=== PATIENT | male | born 1960 | race Caucasian/White ===

== ENCOUNTER 2017-01-30 08:52 | Emergency (ER) | payer OTHER ==
[~2017-01-30 08:52] MED LIST: DESE1CRE TOP
[2017-01-30 08:55] VITALS: BP 164/91; PULSE 99; RESP 17; TEMP 97.9; O2SAT 99
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
== END 2017-01-30 09:50 | disposition home or self-care (01) ==
LOC: NEPD 08:52
DX: M54.2 Cervicalgia (principal); E11.9 Type 2 diabetes mellitus without complications; Z72.0 Tobacco use; V43.52XA Car driver injured in collision with other type car in traffic accident, initial encounter
CPT/HCPCS: 99282

== ENCOUNTER 2017-03-18 20:09 | Observation (INO) | payer SELFPAY ==
[~2017-03-18] VITALS: Ht 152.4 cm; Wt 115.0 kg
[2017-03-18 20:10] VITALS: BP 142/80; PULSE 99; RESP 16; TEMP 97.9; O2SAT 96
[2017-03-18] MEDS ORDERED: LISI-519 PO (22:19)
[2017-03-18] MEDS ORDERED: GLIP5TAB8 PO (22:19)
[2017-03-18] MEDS ORDERED: METF500T PO (22:19)
[2017-03-18] MEDS ORDERED: SODIUM CHLORIDE 0.9% FLUSH 10 ML FLUSH IV FLUSH PRN (22:30)
[2017-03-18 22:48] LABS: HEMATOCRIT 40.6 % (39.0-51.0); HEMOGLOBIN 13.7 GM/DL (13.0-17.0); MEAN CELL VOLUME 80.6 FL (80.0-100.0); MEAN CORPUSCULAR HEMOGLOBIN 27.3 PG (27.0-34.0); MEAN CORPUSCULAR HGB CONC 33.8 % (32.0-36.0); MEAN PLATELET VOLUME 7.9 FL (7.0-11.0); PLATELET COUNT 335 TH/MM3 (150-450); RED BLOOD COUNT 5.04 MIL/MM3 (4.50-5.90); RED CELL DISTRIBUTION WIDTH 14.4 % (11.6-17.2); WHITE BLOOD COUNT 13.8 TH/MM3 (4.0-11.0)
[2017-03-18 23:05] LABS: BILIRUBIN, URINE NEG (NEG); BLOOD, URINE NEG (NEG); GLUCOSE,URINE NEG (NEG); KETONE, URINE NEG (NEG); MUCUS URINE FEW /lpf (OCC); NITRITE,URINE NEG (NEG); SQUAMOUS EPITHELIAL CELL URINE 1 /hpf (0-5); URINE COLOR YELLOW (YELLW/STRAW); URINE LEUKOCYTE ESTERASE NEG (NEG)
[2017-03-18 23:09] LABS: ALBUMIN 3.5 GM/DL (3.4-5.0); ALT (GPT) 37 U/L (12-78); AST (GOT) 15 U/L (15-37); BICARBONATE 27.3 MEQ/L (21.0-32.0); BLOOD UREA NITROGEN 9 MG/DL (7-18); CALCIUM 9.4 MG/DL (8.5-10.1); CHLORIDE 104 MEQ/L (98-107); CREATININE 0.97 MG/DL (0.60-1.30); GLOMERULAR FILTRATION RATE 80 ML/MIN (>89); GLUCOSE,RANDOM 131 MG/DL (74-106); LIPASE 160 U/L (73-393); SODIUM (NA) 138 MEQ/L (136-145)
[2017-03-18 23:12] LABS: ALKALINE PHOSPHATASE 101 U/L (45-117); TOTAL BILIRUBIN ADULT 0.2 MG/DL (0.2-1.0); TOTAL PROTEIN 7.9 GM/DL (6.4-8.2)
--- NOTE | 2017-03-18 23:21 | PD ---
HPI Chief Complaint: Abdominal Pain Time Seen by Provider: 22:54 Travel History International Travel<30 days: No Contact w/Intl Traveler<30days: No Traveled to known affect area: No History of Present Illness HPI 56-year-old male patient presents to the ER today with 8 months history of left upper quadrant abdominal pains which she has seen multiple doctors 4, states that they were not able to tell him what is causing the pain, but he states that over last few months his pain has spread over to the right side and is in the upper abdomen, stated to be a 7 out of 10 currently. He states that now he is also having symptoms in his left chest and left upper back area radiating up to the left arm. He denies any shortness of breath, vomiting, or any other symptoms. He is not sure of any exacerbating or alleviating factors but he states that it feels like it hurts when touched. Modifying Factors: Hurts when touched Associated Signs & Symptoms: Upper abdominal pain, left-sided chest pains for several months Risk Factors: None PFSH Past Medical History Diabetes: Yes (TYPE II TAKES METFORMIN AND GLIPIZIDE) Patient Takes Glucophage: Yes Diminished Hearing: No Social History Alcohol Use: No (RARE) Tobacco Use: Yes (1/2PPD) Substance Use: No Allergies-Medications (Allergen,Severity, Reaction): Coded Allergies: No Known Allergies (Verified Adverse Reaction, Unknown, 01/30/17) Reported Meds & Prescriptions Reported Meds & Active Scripts Active Reported Lisinopril 5 Mg Tab 5 Mg PO DAILY Glipizide 5 Mg Tab 5 Mg PO DAILY Take 30 minutes before a meal Metformin (Metformin HCl) 500 Mg Tab 500 Mg PO BIDPC Review of Systems Except as stated in HPI: all other systems reviewed are Neg Physical Exam Narrative GENERAL: Well-developed middle age male patient currently in mild distress. Awake and oriented 3. SKIN: Focused skin assessment warm/dry. I do not see any rash. HEAD: Atraumatic. Normocephalic. EYES: Pupils equal and round. No scleral icterus. No injection or drainage. ENT: No nasal bleeding or discharge. Mucous membranes pink and moist. NECK: Trachea midline. No JVD. Supple. CARDIOVASCULAR: Regular rate and rhythm. No murmur appreciated. RESPIRATORY: No accessory muscle use. Clear to auscultation. Breath sounds equal bilaterally. GASTROINTESTINAL: Abdomen soft, mild tenderness to palpation in the upper abdomen without guarding or rebound, nondistended. Hepatic and splenic margins not palpable. MUSCULOSKELETAL: No obvious deformities. No clubbing. No cyanosis. No edema. NEUROLOGICAL: Awake and alert. No obvious cranial nerve deficits. Motor grossly within normal limits. Normal speech. PSYCHIATRIC: Appropriate mood and affect; insight and judgment normal. Data Data Last Documented VS Vital Signs Date Time Temp Pulse Resp B/P (MAP) Pulse Ox O2 Delivery O2 Flow Rate FiO2 03/18/17 22:14 18 03/18/17 20:10 97.9 99 142/80 (100) 96 Room Air Orders Orders Complete Blood Count With Diff (03/18/17 22:18) Comprehensive Metabolic Panel (03/18/17 22:18) Lipase (03/18/17 22:18) Urinalysis - C+S If Indicated (03/18/17 22:18) Iv Access Insert/Monitor (03/18/17 22:18) Ecg Monitoring (03/18/17 22:18) Oximetry (03/18/17 22:18) Sodium Chloride 0.9% Flush (Ns Flush) (03/18/17 22:30) Chest, Single Ap (03/18/17 22:54) Ct Abd/Pel W Iv Contrast(Rout) (03/18/17 22:54) Iohexol 350 Inj (Omnipaque 350 Inj) (03/18/17 23:53) Labs Laboratory Tests Test 03/18/17 22:20 03/18/17 22:35 White Blood Count 13.8 TH/MM3 Red Blood Count 5.04 MIL/MM3 Hemoglobin 13.7 GM/DL Hematocrit 40.6 % Mean Corpuscular Volume 80.6 FL Mean Corpuscular Hemoglobin 27.3 PG Mean Corpuscular Hemoglobin Concent 33.8 % Red Cell Distribution Width 14.4 % Platelet Count 335 TH/MM3 Mean Platelet Volume 7.9 FL CBC Comment AUTO DIFF Differential Total Cells Counted 100 Neutrophils % (Manual) 58 % Lymphocytes % 38 % Monocytes % 3 % Eosinophils % 1 % Neutrophils # (Manual) 8.0 TH/MM3 Differential Comment FINAL DIFF MANUAL Platelet Estimate NORMAL Platelet Morphology Comment NORMAL Red Cell Morphology Comment NORMAL Blood Urea Nitrogen 9 MG/DL Creatinine 0.97 MG/DL Random Glucose 131 MG/DL Total Protein 7.9 GM/DL Albumin 3.5 GM/DL Calcium Level 9.4 MG/DL Alkaline Phosphatase 101 U/L Aspartate Amino Transf (AST/SGOT) 15 U/L Alanine Aminotransferase (ALT/SGPT) 37 U/L Total Bilirubin 0.2 MG/DL Sodium Level 138 MEQ/L Potassium Level 3.9 MEQ/L Chloride Level 104 MEQ/L Carbon Dioxide Level 27.3 MEQ/L Anion Gap 7 MEQ/L Estimat Glomerular Filtration Rate 80 ML/MIN Lipase 160 U/L Urine Color YELLOW Urine Turbidity CLEAR Urine pH 6.0 Urine Specific [place] 1.015 Urine Protein NEG mg/dL Urine Glucose (UA) NEG mg/dL Urine Ketones NEG mg/dL Urine Occult Blood NEG Urine Nitrite NEG Urine Bilirubin NEG Urine Urobilinogen LESS THAN 2.0 MG/DL Urine Leukocyte Esterase NEG Urine RBC LESS THAN 1 /hpf Urine WBC 1 /hpf Urine Squamous Epithelial Cells 1 /hpf Urine Mucus FEW /lpf Microscopic Urinalysis Comment CULT NOT INDICATED MDM Medical Decision Making Medical Screen Exam Complete: Yes Emergency Medical Condition: Yes Medical Record Reviewed: Yes Interpretation(s) EKG shows NSR, no ST elevation or depression, and no arrhythmias. No significant T-wave inversions. Laboratory Tests Test 03/18/17 22:20 03/18/17 22:35 White Blood Count 13.8 TH/MM3 (4.0-11.0) Neutrophils # (Manual) 8.0 TH/MM3 (1.8-7.7) Random Glucose 131 MG/DL (74-106) Estimat Glomerular Filtration Rate 80 ML/MIN (>89) Urine Mucus FEW /lpf (OCC) Last 24 hours Impressions Chest X-Ray 03/18/172253 Signed Impressions: Service Date/Time: Saturday, March 18, 2017 23:07 - CONCLUSION: No acute disease. Abraham Suazo MD Abdomen/Pelvis CT 03/18/172253 Signed Impressions: Service Date/Time: Saturday, March 18, 2017 23:46 - CONCLUSION: 1. No acute findings within the abdomen and pelvis. Mild fatty liver. Abraham Suazo MD Differential Diagnosis Pancreatitis versus gastritis versus ACS versus cervical radiculopathy versus postherpetic pain Narrative Course Laboratory and CAT scan was unremarkable. Chest x-ray did not show any signs of acute pulmonary processes. EKG did not show any signs of ST changes. At this point, it is unclear whether chest pain and abdominal pain is related. I do not see any signs of acute intra-abdominal processes. The chest pain seems to have occurred later and my plan would be to admit him for further evaluation of chest pain. Diagnosis Primary Impression: Abdominal pain Additional Impression: Chest pain Admitting Information Admitting Physician Requests: Admit SoonZach fam MD Mar 18, 2017 23:21
--- NOTE | 2017-03-18 23:27 | RADRPT ---
EXAM DATE/TIME: 03/18/2017 23:07 [facility] COMPARISON: No previous studies available for comparison. INDICATIONS : Upper abdominal pain radiating into chest and left arm MEDICAL HISTORY : Diabetes mellitus type II. SURGICAL HISTORY : None. ENCOUNTER: Initial ACUITY: 1 day PAIN SCORE: 7/10 LOCATION: Bilateral chest FINDINGS: A single view of the chest demonstrates the lungs to be symmetrically aerated without evidence of mas s, infiltrate or effusion. The cardiomediastinal contours are unremarkable. Osseous structures are intact. CONCLUSION: No acute disease. Abraham Suazo MD on March 18, 2017 at 23:24 Board Certified Radiologist. This report was verified electronically.
[2017-03-18] MEDS ORDERED: IOHEXOL 350 MG/ML 10 ML VIAL (for RAD DIAG) IVCONTRAST ONE (23:53)
[2017-03-18 23:55] LABS: LYMPHOCYTES 38 % (9-44); MONOCYTES 3 % (0-8); POLYS (SEG NEUTROPHILS) 58 % (16-70)
--- NOTE | 2017-03-19 00:01 | RADRPT ---
EXAM DATE/TIME: 03/18/2017 23:46 [facility] COMPARISON: No previous studies available for comparison. INDICATIONS : Upper abdominal pain. IV CONTRAST: 79 cc Omnipaque 350 (iohexol) IV ORAL CONTRAST: No oral contrast ingested. RADIATION DOSE: 18.42 CTDIvol (mGy) MEDICAL HISTORY : Diabetes mellitus type 2. SURGICAL HISTORY : Right femur ENCOUNTER: Initial ACUITY: 1 yr PAIN SCALE: 5/10 LOCATION: abdomen TECHNIQUE: Volumetric scanning of the abdomen and pelvis was performed. Using automated exposure control and ad justment of the mA and/or kV according to patient size, radiation dose was kept as low as reasonably achievable to obtain optimal diagnostic quality images. DICOM format image data is available electro nically for review and comparison. FINDINGS: Lung bases demonstrate some dependent atelectasis. 5 mm nodule right lower lobe has negative Hounsfie ld units and may represent a hamartoma. Mild fatty liver. Spleen, adrenals, kidneys and pancreas unremarkable. No calcified gallstones or mary iary ductal dilatation. No free air or free fluid. No bowel obstruction. No acute bony abnormalities. Previous fixation right femur. CONCLUSION: 1. No acute findings within the abdomen and pelvis. Mild fatty liver. Abraham Suazo MD on March 18, 2017 at 23:53 Board Certified Radiologist. This report was verified electronically.
[2017-03-19] MEDS ORDERED: SODIUM CHLORIDE 0.9% FLUSH 10 ML FLUSH IV FLUSH PRN (01:00)
[2017-03-19 01:07] VITALS: O2SAT 97
[2017-03-19 02:47] LABS: TROPONIN I LESS THAN 0.02 NG/ML (0.02-0.05)
[2017-03-19 03:42] VITALS: BP 153/95; PULSE 80; RESP 20; TEMP 97.9; O2SAT 96
[2017-03-19 04:48] LABS: TROPONIN I LESS THAN 0.02 NG/ML (0.02-0.05)
--- NOTE | 2017-03-19 07:35 | HHI.HP ---
HPI Primary Care Physician No Primary Care Physician Chief Complaint Abdominal pain History of Present Illness 56-year-old male with history of type 2 diabetes presents to emergency room for further evaluation sensitivity to use abdominal.. Onset 8-12 months. Characterizes "area between muscles and skin extremely sensitive and painful." Endorses multiple physician assessed discomfort with CT scans however unable to determine diagnosis or treatment for discomfort. Came to ER as sensitivity and discomfort "moving to left side of chest and left posterior upper arm ( localized area.). Duration constant x1 week. Nothing makes pain better or worse. No exertional chest pain. No associated symptoms. Review of Systems General: No fatigue,weakness, fever, chills, recent illness, or change in appetite. Has been in his general state of health. HEENT: No PALACIOS, no vision changes, no nasal congestion or drainage, no dysphasia CV: No CP, pressure, palpitations, intermittent leg pain, dizziness. Same sensitivity of abdominal area now left side of chest, hurting to touch area. RESP: No SOB, cough, wheeze, or recent URI GI: No nausea, vomiting, bowel changes. Reports touching any area in abdominal highly sensitive leading to pain, wears an abdominal binder to reduce touching of area. : No dysuria, urgency, frequency EXT: No lower leg edema MS: No discomfort, change in ROM, injury, or trauma. NEURO: No change in memory, dizziness, difficulty with balance, LOC, motor/ sensory deficits PSYCH: No anxiety, depression SKIN: No rashes, no concerning lesions Past Family Social History Allergies: Coded Allergies: No Known Allergies (Verified Allergy, Unknown, 03/19/17) Past Medical History Diabetes Past Surgical History None Reported Medications Reported Meds & Active Scripts Active Reported Lisinopril 5 Mg Tab 5 Mg PO DAILY Glipizide 5 Mg Tab 5 Mg PO DAILY Take 30 minutes before a meal Metformin (Metformin HCl) 500 Mg Tab 500 Mg PO BIDPC Active Ordered Medications Current Medications Medications (Trade) Dose Ordered Sig/Felicia Route Start Time Stop Time Status Last Admin (NS Flush) 2 ml UNSCH PRN IV FLUSH 03/18/17 22:30 (NS Flush) 2 ml UNSCH PRN IV FLUSH 03/19/17 01:00 (NS Flush) 2 ml BID IV FLUSH 03/19/17 09:00 (Aspirin) 325 mg DAILY PO 03/19/17 09:00 Social History Known diabetes. No known hypertensin, CAD, or hyperlipidemia. Current smoker 1/2 pack/daily. 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 Physical Exam Vital Signs Vital Signs Date Time Temp Pulse Resp B/P (MAP) Pulse Ox O2 Delivery O2 Flow Rate FiO2 03/19/17 03:42 97.9 80 20 153/95 (114) 96 03/19/17 02:13 03/19/17 01:07 97 21 03/18/17 22:14 18 03/18/17 20:10 97.9 99 16 142/80 (100) 96 Room Air Physical Exam GENERAL: Alert WN, WD, NAD, pleasant, obese, male HEAD: NC, AT EYES: Sclera clear, conjunctiva without injection, pupils equal and round ENT: Mucous membranes pink and moist NECK: Supple, no masses, trachea midline CV: RRR, without murmur, rub, gallop, no JVD, S1-S2 no S3-S4. Chest pain reproduced with light touch. RESP: Clear lungs throughout bilateral, no crackles, wheeze, rhonchi, symmetrical chest rise, nonlabored, able to speak in full sentences ABD: Soft, ND, no masses, positive bowel tones, diffuse abdominal area discomfort reproduced with light touch. MS: Normal tone 4 extremities, no obvious deformities, full range of motion NEURO: CN II through CN XII grossly intact, motor strength 5/5, gait WNL PSYCH: A+O 3, pleasant affect, appropriate speech, mood, insight and judgment SKIN: Normal turgor, normal texture, no lesions, no rashes, even hair distribution Laboratory Laboratory Tests Test 03/18/17 22:20 03/18/17 22:35 03/19/17 01:30 03/19/17 04:00 White Blood Count 13.8 Red Blood Count 5.04 Hemoglobin 13.7 Hematocrit 40.6 Mean Corpuscular Volume 80.6 Mean Corpuscular Hemoglobin 27.3 Mean Corpuscular Hemoglobin Concent 33.8 Red Cell Distribution Width 14.4 Platelet Count 335 Mean Platelet Volume 7.9 CBC Comment AUTO DIFF Differential Total Cells Counted 100 Neutrophils % (Manual) 58 Lymphocytes % 38 Monocytes % 3 Eosinophils % 1 Neutrophils # (Manual) 8.0 Differential Comment FINAL DIFF MANUAL Platelet Estimate NORMAL Platelet Morphology Comment NORMAL Red Cell Morphology Comment NORMAL Blood Urea Nitrogen 9 Creatinine 0.97 Random Glucose 131 Total Protein 7.9 Albumin 3.5 Calcium Level 9.4 Alkaline Phosphatase 101 Aspartate Amino Transf (AST/SGOT) 15 Alanine Aminotransferase (ALT/SGPT) 37 Total Bilirubin 0.2 Sodium Level 138 Potassium Level 3.9 Chloride Level 104 Carbon Dioxide Level 27.3 Anion Gap 7 Estimat Glomerular Filtration Rate 80 Lipase 160 Urine Color YELLOW Urine Turbidity CLEAR Urine pH 6.0 Urine Specific [place] 1.015 Urine Protein NEG Urine Glucose (UA) NEG Urine Ketones NEG Urine Occult Blood NEG Urine Nitrite NEG Urine Bilirubin NEG Urine Urobilinogen LESS THAN 2.0 Urine Leukocyte Esterase NEG Urine RBC LESS THAN 1 Urine WBC 1 Urine Squamous Epithelial Cells 1 Urine Mucus FEW Microscopic Urinalysis Comment CULT NOT INDICATED Total Creatine Kinase 134 133 Creatine Kinase MB 1.8 2.0 Troponin I LESS THAN 0.02 LESS THAN 0.02 Result Diagram: 03/18/17221903/18/172219 Imaging Last 48 hours Impressions Chest X-Ray 03/18/172253 Signed Impressions: Service Date/Time: Saturday, March 18, 2017 23:07 - CONCLUSION: No acute disease. Abraham Suazo MD Abdomen/Pelvis CT 03/18/172253 Signed Impressions: Service Date/Time: Saturday, March 18, 2017 23:46 - CONCLUSION: 1. No acute findings within the abdomen and pelvis. Mild fatty liver. Abraham Suazo MD Course EKG NSR, no st t segment changes Caprini VTE Risk Assessment Caprini VTE Risk Assessment: No/Low Risk (score <= 1) Caprini Risk Assessment Model Point Value = 1 Point Value = 2 Point Value = 3 Point Value = 5 Age 41-60 Minor surgery BMI > 25 kg/m2 Swollen legs Varicose veins or History of unexplained or recurrent spontaneous Oral contraceptives or hormone replacement Sepsis (< 1 month) Serious lung disease, including pneumonia (< 1 month) Abnormal pulmonary function Acute myocardial infarction Congestive heart failure (< 1 month) History of inflammatory bowel disease Medical patient at bed rest Age 61-74 Arthroscopic surgery Major open surgery (> 45 min) Laparoscopic surgery (> 45 min) Malignancy Confined to bed (> 72 hours) Immobilizing plaster cast Central venous access Age >= 75 History of VTE Family history of VTE Factor V Leiden Prothrombin [id number] Lupus anticoagulant Anticardiolipin antibodies Elevated serum homocysteine Heparin-induced thrombocytopenia Other congenital or acquired thrombophilia Stroke (< 1 month) Elective arthroplasty Hip, pelvis, or leg fracture Acute spinal cord injury (< 1 month) Prophylaxis Regimen Total Risk Factor Score Risk Level Prophylaxis Regimen 0-1 Low Early ambulation 2 Moderate Order ONE of the following: *Sequential Compression Device (SCD) *Heparin 5000 units SQ BID 3-4 Higher Order ONE of the following medications: *Heparin 5000 units SQ TID *Enoxaparin/Lovenox 40 mg SQ daily (WT < 150 kg, CrCl > 30 mL/min) *Enoxaparin/Lovenox 30 mg SQ daily (WT < 150 kg, CrCl > 10-29 mL/min) *Enoxaparin/Lovenox 30 mg SQ BID (WT < 150 kg, CrCl > 30 mL/min) AND/OR *Sequential Compression Device (SCD) 5 or more Highest Order ONE of the following medications: *Heparin 5000 units SQ TID (Preferred with Epidurals) *Enoxaparin/Lovenox 40 mg SQ daily (WT < 150 kg, CrCl > 30 mL/min) *Enoxaparin/Lovenox 30 mg SQ daily (WT < 150 kg, CrCl > 10-29 mL/min) *Enoxaparin/Lovenox 30 mg SQ BID (WT < 150 kg, CrCl > 30 mL/min) AND *Sequential Compression Device (SCD) Assessment and Plan Assessment and Plan #1 Hyperalgesia-admitted to chest pain center. Cardiac protocol initiated overnight by ED, ruled out with 3 sets of EKGs and cardiac enzymes. Seen and evaluated by Dr. Humberto Davis. Chronic abdominal sensitivity with radiation x1 week to left generalized chest pain and localized posterior left forearm. Discomfort constant. Discomfort easily made worse with touch, clearly not cardiac in nature. Discussed discomfort due to highly sensitive nerves. Start gabapentin 300mg BID, discharge home with follow up with his PCP. Local free clinic information given and discussed, as currently self paying for PCP services and verbalizes financial difficulty with this. Education provided gabapentin may make him drowsiness, therefore use caution until effects of medication is determined. Verbalized understanding. Devi Enriquez Mar 19, 2017 07:35
[2017-03-19 08:00] VITALS: BP 125/79; PULSE 82; RESP 20; TEMP 95.7; O2SAT 97
[2017-03-19] MEDS ORDERED: GABAPENTIN 300 MG CAP PO ONE (08:00)
[2017-03-19] MEDS ORDERED: GABA300C5 PO (08:50)
--- NOTE | 2017-03-19 08:51 | HHI.DCPOC ---
Discharge Care Plan Diagnosis: (1) Hyperalgesia (2) History of diabetes mellitus, type II Goals to Promote Your Health * To prevent worsening of your condition and complications * To maintain your health at the optimal level Directions to Meet Your Goals Take your medications as prescribed Follow your dietary instruction Follow activity as directed Keep your appointments as scheduled Take your immunizations and boosters as scheduled If your symptoms worsen call your PCP, if no PCP go to Urgent Care Center or Emergency Room Smoking is Dangerous to Your Health. Avoid second hand smoke Call the 24-hour hour crisis hotline for domestic abuse at Devi Enriquez Mar 19, 2017 08:51
[2017-03-19] MEDS ORDERED: SODIUM CHLORIDE 0.9% FLUSH 10 ML FLUSH IV FLUSH SCH (09:00)
[2017-03-19] MEDS ORDERED: ASPIRIN 325 MG TAB PO SCH (09:00)
--- NOTE | 2017-03-19 12:48 | EKG ---
Date Performed: 03/19/2017 Time Performed: 07:11:09 PTAGE: 56 years EKG: Sinus rhythm NORMAL ECG PREVIOUS TRACING : 03/19/2017 05.09 Since previous tracing, no significant change noted DOCTOR: Humberto Davis Interpretating Date/Time 03/19/2017 12:47:48
--- NOTE | 2017-03-19 12:51 | EKG ---
Date Performed: 03/19/2017 Time Performed: 05:09:32 PTAGE: 56 years EKG: Sinus rhythm NORMAL ECG PREVIOUS TRACING : 03/19/2017 00.46 Since previous tracing, no significant change noted DOCTOR: Humberto Davis Interpretating Date/Time 03/21/2017 07:19:23
--- NOTE | 2017-03-19 12:52 | EKG ---
Date Performed: 03/19/2017 Time Performed: 00:46:54 PTAGE: 56 years EKG: Sinus rhythm NORMAL ECG NO PREVIOUS TRACING DOCTOR: Humberto Davis Interpretating Date/Time 03/19/2017 12:50:32
== END 2017-03-19 10:23 | disposition home or self-care (01) ==
LOC: NEPE 20:09 → NEDA 03-19 00:57 → NEPGCP 03-19 02:09
PROVIDERS: ADMIT Internal Medicine Interventional Cardiology; ATTEND Internal Medicine Interventional Cardiology
DX: R20.8 Other disturbances of skin sensation (principal); R07.9 Chest pain, unspecified; E11.9 Type 2 diabetes mellitus without complications; F17.210 Nicotine dependence, cigarettes, uncomplicated
CPT/HCPCS: 71045; 74177; 80053; 81001; 82550; 82552; 83690; 84484; 85007; 85027; 93005; 99285; G0378; Q9967